=== PATIENT | male | born 1945 | race Caucasian/White ===

== ENCOUNTER → 2017-10-11 10:34 | Outpatient (CLI) | payer OTHER, SELFPAY ==
--- NOTE | 2017-10-11 | DI.CT.S_ITS ---
PROCEDURE: CT CHEST ABD PEL W CON INDICATIONS: 72-year-old male with metastatic colorectal carcinoma. TECHNIQUE: After the administration of oral and intravenous contrast, 5 mm thick sections acquired from the lung apices to the symphysis. 5 mm coronal and sagittal reformats were performed, with additional 7 mm coronal MIP reformats through the lungs. For radiation dose reduction, the following was used: automated exposure control, adjustment of mA and/or kV according to patient size. COMPARISON: [facility], CT, CHEST/ABD/PEL WITH CONTRAST, 08/22/2017, 13:07. [facility], CT, CHEST/ABD/PEL WITH CONTRAST, 05/04/2017, 13:23. [facility], [place], PET/CT SKULL BASE TO MID THIGH, 09/24/2016, 11:05. [facility], CT, CT CHEST ABD PELVIS W CON, 04/27/2016, 12:51. FINDINGS: Image quality: Excellent. CHEST: Lungs and pleura: No acute airspace opacities. Scattered bilateral pulmonary scarring is again noted, as well as several calcified pulmonary granulomas. Several bibasilar noncalcified nodules are unchanged since August 2017 but significantly smaller since April 2017, consistent with residual metastases. No pleural effusions or pneumothorax. Central and peripheral airways appear patent and normal in caliber. Mediastinum: Heart size is normal. No pericardial effusion. No mediastinal or hilar adenopathy by size criteria. Several calcified mediastinal lymph nodes are again noted. Thoracic aorta and central pulmonary arteries are normal in size. Esophagus is normal in caliber. No hiatal hernia. Chest wall: Left chest wall Port-A-Cath is again noted. No axillary or supraclavicular adenopathy by size criteria. Thyroid gland is normal in overall size but incompletely visualized. ABDOMEN: Solid organs: Liver is normal in size. Scattered punctate hepatic hypodense lesions are too small to further characterize but unchanged, likely reflecting tiny cysts. Gallbladder wall thickness is normal. Biliary system is non dilated. Pancreas enhances normally. Spleen is normal in size and enhancement. No adrenal nodules. Kidneys demonstrate normal size and enhancement, with interval resolved mild right hydroureteronephrosis. Right double-J ureteral stent remains in expected position. Peritoneum and bowel: Bowel loops demonstrate normal wall thickness and caliber. Patient is status post distal colon resection with left mid abdominal colostomy as before. No free fluid or air. Nodes and vessels: No retroperitoneal or mesenteric adenopathy by size criteria. Aorta and inferior vena cava are normal in size. Miscellaneous: No ventral hernias. PELVIS: Genitourinary: Bladder wall thickness is normal. Prostate gland is normal in overall size. Miscellaneous: No inguinal hernias or adenopathy. Amorphous soft tissue density along the right iliac vessels is unchanged since August 2017, but smaller since April 2017, consistent with previously reported metastatic adenopathy. Bones: No suspicious bony lesions. No vertebral body compression fractures. Nonacute healed left ischial ramus fracture is again noted. IMPRESSION: 1. Residual bibasilar pulmonary nodules and amorphous soft tissue densities along the right iliac vessels are unchanged since August 2017 but smaller since April 2017, consistent with metastatic tumor response to treatment. No new findings to suggest colon cancer metastases. 2. Pulmonary and mediastinal remote granulomatous disease. 3. Right ureteral stent remains in expected position, with interval decreased degree of right hydroureteronephrosis. Dictated by: Marlon Lazo M.D. on 10/11/2017 at 13:51 Approved by: Marlon Lazo M.D. on 10/11/2017 at 14:07
== END ==
PROVIDERS: PCP Internal Medicine; Visit Provider Internal Medicine Hematology & Oncology
DX: C18.9 Malignant neoplasm of colon, unspecified (principal); R91.8 Other nonspecific abnormal finding of lung field
CPT/HCPCS: 71260; 74177; Q9967

== ENCOUNTER → 2017-12-14 11:34 | Outpatient (CLI) | payer OTHER, SELFPAY ==
--- NOTE | 2017-12-14 | DI.CT.S_ITS ---
PROCEDURE: CT CHEST ABD PEL W CON INDICATIONS: METASTATIC RECTAL ADENOCARCINOMA TECHNIQUE: After the administration of oral and intravenous contrast, 5 mm thick sections acquired from the lung apices to the symphysis. 5 mm coronal and sagittal reformats were performed, with additional 7 mm coronal MIP reformats through the lungs. For radiation dose reduction, the following was used: automated exposure control, adjustment of mA and/or kV according to patient size. COMPARISON: [facility], CT, CT CHEST ABD PEL W CON, 10/11/2017, 11:43. [facility], CT, CHEST/ABD/PEL WITH CONTRAST, 08/22/2017, 13:07. [facility], CT, CHEST/ABD/PEL WITH CONTRAST, 05/04/2017, 13:23. FINDINGS: Image quality: Excellent. CHEST: Lungs and pleura: No acute airspace opacities. Areas of granulomatous disease and lung scarring within the lungs bilaterally have been stable over time. No pleural effusions or pneumothorax. Central and peripheral airways appear patent and normal in caliber. Mediastinum: Heart size is normal. No pericardial effusion. No mediastinal or hilar adenopathy by size criteria. Small scattered mediastinal calcified lymph nodes are again noted. This is best seen in the subcarinal space. Thoracic aorta and central pulmonary arteries are normal in size. Esophagus is normal in caliber. No hiatal hernia. Chest wall: No axillary or supraclavicular adenopathy by size criteria. Thyroid gland appears normal where well visualized. Port-A-Cath in normal position from left-sided approach. ABDOMEN: Solid organs: Liver is normal in size and enhancement. Gallbladder appears normal. Biliary system is non dilated. Pancreas enhances normally. Spleen is normal in size and enhancement. No adrenal nodules. Kidneys demonstrate asymmetric size, smaller on the right, and enhancement, without hydronephrosis. The right ureteral stent remains in normal position, tracking into the right bladder lumen Peritoneum and bowel: Bowel loops demonstrate normal wall thickness and caliber. No free fluid or air. Nodes and vessels: No retroperitoneal or mesenteric adenopathy by size criteria. Aorta and inferior vena cava are normal in size. Miscellaneous: No ventral hernias. PELVIS: Genitourinary: Bladder wall thickness is normal. Miscellaneous: No inguinal hernias or adenopathy. Ostomy left lower quadrant, no operative complication or peristomal hernia. Apparent rectal resection, no recurrent neoplasm in the operative bed. Bones: No suspicious bony lesions. No vertebral body compression fractures. IMPRESSION: 1. Stable appearing granulomatous disease and lung scarring, no evidence of pulmonary metastatic disease. 2. Within the abdomen no solid organ metastatic disease or adenopathy is found. 3. Asymmetric small right kidney, due to chronic hydronephrosis which has been relieved by a right-sided double pigtail ureteral stent in normal position above and below. 4. Stable appearing postsurgical changes in prior APR, without evidence of recurrent neoplasm or adjacent adenopathy in the presacral space. Left lower quadrant ostomy site appears normal. Dictated by: Librado Mary M.D. on 12/14/2017 at 16:25 Approved by: Librado Mary M.D. on 12/14/2017 at 16:46
== END ==
PROVIDERS: PCP Internal Medicine; Visit Provider Internal Medicine Hematology & Oncology
DX: C20 Malignant neoplasm of rectum (principal); N13.30 Unspecified hydronephrosis
CPT/HCPCS: 71260; 74177; Q9967

== ENCOUNTER 2018-10-03 09:14 | Emergency (ER) | payer OTHER, SELFPAY ==
[2018-10-03] VITALS (15 sets, daily range): BP systolic 73–101; BP diastolic 38–57; PULSE 66–118; RESP 11–18; TEMP 36.5; O2SAT 97–100
--- NOTE | 2018-10-03 09:41 | DI.RAD.S_ITS ---
PROCEDURE: XR CHEST 1V INDICATIONS: suspected sepsis TECHNIQUE: One view of the chest was acquired. COMPARISON: [facility], , CHEST 1 VIEW, 07/09/2017, 23:37. FINDINGS: Surgical changes and devices: Left chest wall Port-A-Cath tip is in SVC. Lungs and pleura: Lungs are clear. No pleural effusions or pneumothorax. Mediastinum: Mediastinal contours appear normal. Heart size is normal. Bones and chest wall: No suspicious bony lesions. Overlying soft tissues appear unremarkable. IMPRESSION: No acute cardiopulmonary pathology. Dictated by: Ander Bartlett M.D. on 10/03/2018 at 10:31 Approved by: Ander Bartlett M.D. on 10/03/2018 at 10:33
[2018-10-03] MEDS: SODIUM CHLORIDE 0.9% 1,000 ML 1000 ML IV (09:51)
[2018-10-03 09:55] LABS: INR 1.1 (0.9-1.3); Prothrombin Time 12.9 SECONDS (10.1-12.7)
[2018-10-03 09:57] LABS: PTT Partial Thromboplastin Tim 30 SECONDS (26.4-36.2)
[2018-10-03 09:59] LABS: Add Manual Diff / Slide Review NO; Basophils Absolute Auto 0 /uL (0-100); Basophils Percent Auto 0.5 % (0-2); Eosinophils Absolute Auto 200 /uL (0-450); Eosinophils Percent Auto 3.5 % (2-4); Hematocrit 38.9 % (41-53); Lymphocytes Absolute Auto 700 /uL (1100-4500); Lymphocytes Percent Auto 14.1 % (25-40); Mean Corpuscular HGB Conc 33.5 % (30-36); Mean Corpuscular Hemoglobin 33.9 PG (26-34); Mean Corpuscular Volume 101.2 fL (80-100); Monocytes Absolute Auto 400 /uL (0-900); Neutrophils Absolute Auto 3900 /uL (1500-7000); Neutrophils Percent Auto 74.9 % (50-75); Platelet Count 312 X10^3/uL (150-400); Red Blood Cell Count 3.85 X10^6/uL (4.5-5.9); Red Cell Distribution Width 14.1 % (11.6-14.8); White Blood Cell Count 5.2 X10^3/uL (4.5-11.0)
[2018-10-03 10:10] LABS: Creatine Kinase 74 U/L (55-170)
[2018-10-03] MEDS: HYDROCORTISONE 1% OINT 28 GM 1 APPLIC TOP (10:16)
--- NOTE | 2018-10-03 10:17 | PC.NURSE ---
reaction to chloroprep used by lab to draw blood cultures noted, red skin w/ small bumps, localized only to right ac. hydrocortisone cream applied w/ verbalized relief.
[2018-10-03 10:20] LABS: Alanine Aminotransferase 40 IU/L (21-72); Albumin 3.7 g/dL (3.5-5.0); Albumin Globulin Ratio 1.5 (1.0-2.8); Alkaline Phosphatase 72 U/L (38-126); Aspartate Aminotransferase 29 IU/L (17-59); Bilirubin Total 0.4 mg/dL (0.2-1.3); Blood Urea Nitrogen 18 mg/dL (9-20); Calcium 8.7 mg/dL (8.4-10.2); Carbon Dioxide 23 mmol/L (22-32); Chloride 104 mmol/L (98-107); Estimated Glomerular Filt Rate > 60.0 mL/min (>60); Globulin 2.5 g/dL (1.7-4.1); Glucose 117 mg/dL (80-110); HEMOLYSIS 15 (0-50); Sodium 138 mmol/L (137-145); Total Protein 6.2 g/dL (6.3-8.2)
[2018-10-03 10:23] LABS: Troponin I < 0.012 ng/mL (0.01-0.034)
[2018-10-03 10:27] LABS: Procalcitonin < 0.05 ng/mL (<0.5)
[2018-10-03 10:31] LABS: Lipase 40 U/L (23-300)
[2018-10-03 10:32] LABS: Lactate (Lactic Acid) 1.4 mmol/L (0.7-2.1)
[2018-10-03] MEDS: SODIUM CHLORIDE 0.9% 1,000 ML 500 ML IV (11:16)
--- NOTE | 2018-10-03 12:44 | ED.DIZZY ---
HPI - Dizziness General Chief Complaint: Dizziness Stated Complaint: Low blood pressure, dizzy, light headed Time Seen by Provider: 10/03/18 09:27 Source: patient and family Mode of arrival: ambulatory Limitations: no limitations History of Present Illness HPI Narrative: Patient comes to the emergency department complaining of dizziness and low blood pressure for the last couple of days. Patient has metastatic colorectal cancer and is on chemotherapy for this. The last chemo he had was last week. Patient states that after his chemotherapy, he is usually constipated for a few days and then developed diarrhea. 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 He states that last night he had an episode of copious diarrhea, and had to empty his colostomy bag several times. He has wonders if this has contributed to to his feeling of dizziness. Patient states that he has not had a recent change in his chemotherapy, and has been on this same agent for the last couple of months. He states he gets his chemo treatments every 2 weeks. He usually gets a L of IV fluid with the treatment, but that otherwise, he takes p.o. liquids. He states he has not been nauseated or vomiting. The patient states that he has been feeling more fatigued than usual for the last month, and that none of his physicians seem to know exactly why. He states that his thyroid was just recently checked, and the values were found to be normal. patient denies chest pain, shortness of breath, fever, cough, dysuria, or any other new complaints. patient does note that he is still on metoprolol and lisinopril. He states that his blood pressure has been lower since being back on the chemotherapy. Related Data Home Medications Medication Instructions Recorded Confirmed amiodarone 200 mg PO DAILY 10/03/18 10/03/18 apixaban [Eliquis] 5 mg PO BID 10/03/18 10/03/18 ascorbic acid (vitamin C) [Vitamin 1 g PO DAILY 10/03/18 10/03/18 C] aspirin 81 mg PO DAILY 10/03/18 10/03/18 atorvastatin 40 mg PO DAILY 10/03/18 10/03/18 cholecalciferol (vitamin D3) 5,000 unit PO DAILY 10/03/18 10/03/18 [Vitamin D3] digestive enzymes [Enzymatic 1 tab PO TID PRN 10/03/18 10/03/18 Digestant] docosahexanoic acid-epa 1 cap PO DAILY 10/03/18 10/03/18 gabapentin 300 mg PO BID 10/03/18 10/03/18 glutamine 1 packet PO BID 10/03/18 10/03/18 hydrocortisone 1 applic TOPICAL BID PRN 10/03/18 10/03/18 lisinopril 1.25 mg PO DAILY 10/03/18 10/03/18 magnesium 200 mg PO DAILY 10/03/18 10/03/18 metoprolol succinate 25 mg PO Q12H 10/03/18 10/03/18 multivitamin 1 cap PO DAILY 10/03/18 10/03/18 oxycodone 5 mg PO Q12H 10/03/18 10/03/18 potassium chloride 10 meq PO DAILY 10/03/18 10/03/18 trazodone 50 mg PO BEDTIME PRN 10/03/18 10/03/18 vit [id number] fact-FA cmb #2 1 tab PO DAILY 10/03/18 10/03/18 [Intrinsi [id number]] Allergies Allergy/AdvReac Type Severity Reaction Status Date / Time CHLOROPREP Allergy Unknown SKIN Uncoded 09/14/17 12:17 REACTION Review of Systems Constitutional Denies chills, Reports fatigue, Denies fever(s), Denies lethargy and Denies weakness Eyes Denies change in vision, Denies eye discharge, Denies irritation and Denies loss of vision ENT Ears, Nose, Mouth, and Throat: Denies change in voice, Denies neck pain and Denies sore throat Cardiovascular Denies chest pain, Denies irregular heart rhythm, Denies lightheadedness, Denies palpitations, Denies dyspnea, Denies dyspnea on exertion and Denies orthopnea Respiratory Denies cough, Denies dyspnea, Denies dyspnea on exertion and Denies wheezing Gastrointestinal Gastrointestinal: Denies abdominal pain, Denies change in bowel habits, Denies diarrhea, Denies nausea and Denies vomiting Genitourinary Denies hematuria, Denies flank pain, Denies urinary incontinence and Denies urinary urgency Musculoskeletal Denies neck pain Integumentary/Breasts Denies pruritus, Denies erythema, Denies rash and Denies wounds Neurologic Denies confusion, Denies loss of vision and Denies weakness Psychiatric Denies anxiety, Denies confusion, Denies depression, Denies homicidal ideation and Denies suicidal ideation Endocrine Reports fatigue and Denies palpitations Hematologic/Lymphatic Denies easy bruising Allergic/Immunologic Denies wheezing [facility] Medical History (Updated 10/05/18 @ 12:27 by Yenny Marquis MD) Metastatic colorectal cancer (Acute) No blood products (Acute) Social History Smoking Status: Former smoker Social History Smoking Status: Former smoker Exam Initial Vital Signs Initial Vital Signs: Vital Signs Temperature 97.7 F 10/03/18 09:18 Pulse Rate 103 H 10/03/18 09:18 Respiratory Rate 14 10/03/18 09:18 Blood Pressure 80/57 L 10/03/18 09:18 Pulse Oximetry 97 10/03/18 09:18 Const General: cooperative and well developed Nutritional Appearance: well nourished Orientation: alert, awake, oriented x3 and not confused HENMT Head: normocephalic and atraumatic Ears: external ears normal and TM's normal bilaterally Nose: external nose normal and No nasal discharge Face and sinus: sinuses nontender, face symmetric, no sinus tenderness and No dry mucous membranes Mouth: oral mucosae normal and moist mucous membranes Teeth and gingiva: dentition normal Throat: tonsils normal and uvula midline Eyes General: appearance normal, both eyes and all related structures Eyelids: eyelids normal Conjunctivae: conjunctivae normal Sclera: sclerae normal Pupils: PERRL EOM: EOM intact bilaterally Neck Neck: normal visual inspection, trachea midline, No lymphadenopathy, No midline deformity and No JVD Lymphatic: No lymphedema Chest Chest: normal inspection of the chest Resp Effort & Inspection: normal respiratory effort, able to speak in complete sentences, no respiratory distress and no use of accessory muscles Auscultation: clear to auscultation bilaterally, no rales, no rhonchi and no wheezes Cardio Rate: regular rate Rhythm: regular rhythm Heart Sounds: no click, no gallops, no murmurs and no rubs Pulses: normal peripheral pulses GI Inspection: non-distended Palpation: soft, no hepatosplenomegaly, No guarding, No pulsatile mass and No tender Auscultation: normal bowel sounds Back/Spine/Pelvis Back: No CVA tenderness Cervical Spine: cervical ROM normal and No pain with cervical ROM Thoracic/Lumbar Spine: thoracic and lumbar spine normal to inspection Skin General: no rashes or lesions noted, No jaundice and No petechiae Neuro General: alert, oriented x3, gait normal and no focal motor deficits Speech: speech normal Extrem General: full ROM, no clubbing, cyanosis or edema, no pedal edema and no calf tenderness Psych Appearance: well kempt Mental Status: mental status grossly normal Attitude: cooperative Thought Content: normal and suicidality Judgment: judgment good Course Course Narrative: Patient was given IV fluids and worked up with laboratory studies. I felt that he was most likely somewhat dehydrated after the chemotherapy and diarrhea. I also reviewed the patient's past medical history, and found that the hypotension had been going on for quite some time, and had been acknowledged by the patient's oncologist. I was also concerned patient was still on metoprolol and lisinopril, despite his hypotension. I spoke with Dr. Valentin, who stated that he should discontinue the patient's lisinopril. I did communicate this to the patient and family, who expressed understanding. Patient was feeling much better on re-evaluation, and I felt he was stable for discharge home. We have discussed the need to drink copious amounts of fluids, especially in the 1st week after chemo. We have discussed the need for follow-up, as well as the usual indications for return. Orders Ordered: Discontinued Medications Hydrocortisone (Hydrocortisone 1% Oint) 1 applic TOP NOW ONE Stop: 10/03/18 10:16 Last Admin: 10/03/18 10:16 Dose: 1 applic Sodium Chloride (Normal Saline 0.9%) 1,000 mls @ 1,000 mls/hr IV BOLUS ONE Stop: 10/03/18 10:40 Last Infusion: 10/03/18 11:16 Dose: 0 mls/hr Admin: 10/03/18 09:51 Dose: 1,000 mls/hr Sodium Chloride (Normal Saline 0.9%) 1,000 mls @ 500 mls/hr IV BOLUS ONE Stop: 10/03/18 13:09 Last Infusion: 10/03/18 14:15 Dose: 0 mls/hr Infusion: 10/03/18 14:11 Dose: 0 mls/hr Infusion: 10/03/18 12:18 Dose: 250 mls/hr Admin: 10/03/18 11:16 Dose: 500 mls/hr Vital Signs - 8 hr 10/03/18 09:18 10/03/18 09:28 10/03/18 09:34 Temperature 97.7 F Pulse Rate 103 H 118 H 93 H Pulse Rate [Orthostatic Lying] Pulse Rate [Orthostatic Sitting] Pulse Rate [Orthostatic Standing] Respiratory Rate 14 18 17 Blood Pressure 80/57 L Blood Pressure [Left Arm] 78/38 L 100/56 L Blood Pressure [Orthostatic Lying] Blood Pressure [Orthostatic Sitting] Blood Pressure [Orthostatic Standing] Pulse Oximetry 97 98 10/03/18 09:48 10/03/18 09:50 10/03/18 10:05 Temperature Pulse Rate 100 H 98 H Pulse Rate [Orthostatic Lying] 88 Pulse Rate [Orthostatic Sitting] 97 H Pulse Rate [Orthostatic Standing] 108 H Respiratory Rate 17 18 Blood Pressure Blood Pressure [Left Arm] 91/48 L 81/40 L Blood Pressure [Orthostatic Lying] 100/56 L Blood Pressure [Orthostatic Sitting] 98/56 L Blood Pressure [Orthostatic Standing] 73/50 L Pulse Oximetry 98 98 10/03/18 10:26 10/03/18 11:00 10/03/18 11:20 Temperature Pulse Rate 76 66 70 Pulse Rate [Orthostatic Lying] Pulse Rate [Orthostatic Sitting] Pulse Rate [Orthostatic Standing] Respiratory Rate 12 11 L 14 Blood Pressure Blood Pressure [Left Arm] 90/47 L 101/41 L 91/49 L Blood Pressure [Orthostatic Lying] Blood Pressure [Orthostatic Sitting] Blood Pressure [Orthostatic Standing] Pulse Oximetry 98 100 99 10/03/18 11:39 Temperature Pulse Rate 69 Pulse Rate [Orthostatic Lying] Pulse Rate [Orthostatic Sitting] Pulse Rate [Orthostatic Standing] Respiratory Rate 14 Blood Pressure Blood Pressure [Left Arm] 95/42 L Blood Pressure [Orthostatic Lying] Blood Pressure [Orthostatic Sitting] Blood Pressure [Orthostatic Standing] Pulse Oximetry 100 MDM - Dizziness Medical Records Attestation: I reviewed the patient's medical records. Lab Data Attestation: I reviewed the patient's lab results. Result diagrams: 10/03/18 09:35 10/03/18 09:41 Lab Results 10/03/18 10/03/18 10/03/18 Range/Units 09:35 09:35 09:35 WBC 5.2 (4.5-11.0) X10^3/uL RBC 3.85 L (4.5-5.9) X10^6/uL Hgb 13.0 L (13.5-17.5) g/dL Hct 38.9 L (41-53) % MCV 101.2 H (80-100) fL MCH 33.9 (26-34) PG MCHC 33.5 (30-36) % RDW 14.1 (11.6-14.8) % Plt Count 312 (150-400) X10^3/uL Neut % (Auto) 74.9 (50-75) % Lymph % (Auto) 14.1 L (25-40) % [place] % (Auto) 7.0 (3-14) % Eos % (Auto) 3.5 (2-4) % Baso % (Auto) 0.5 (0-2) % Neut # (Auto) 3900 (8864-7585) /uL Lymph # (Auto) 700 L (9085-3676) /uL [place] # (Auto) 400 (0-900) /uL Eos # (Auto) 200 (0-450) /uL Baso # (Auto) 0 (0-100) /uL PT 12.9 H (10.1-12.7) SECONDS INR 1.1 (0.9-1.3) APTT 30 (26.4-36.2) SECONDS Sodium (137-145) mmol/L Potassium (3.4-5.1) mmol/L Chloride (98-107) mmol/L Carbon Dioxide (22-32) mmol/L BUN (9-20) mg/dL Creatinine (0.66-1.25) mg/dL Estimated GFR (>60) mL/min BUN/Creatinine Ratio (6-22) Glucose (80-110) mg/dL Lactate (0.7-2.1) mmol/L Calcium (8.4-10.2) mg/dL Total Bilirubin (0.2-1.3) mg/dL AST (17-59) IU/L ALT (21-72) IU/L Alkaline Phosphatase (38-126) U/L Total Creatine Kinase (55-170) U/L CK-MB (CK-2) CK-MB (CK-2) Rel Index Troponin I (0.01-0.034) ng/mL Total Protein (6.3-8.2) g/dL Albumin (3.5-5.0) g/dL Globulin (1.7-4.1) g/dL Albumin/Globulin Ratio (1.0-2.8) Lipase (23-300) U/L Procalcitonin < 0.05 (<0.5) ng/mL 10/03/18 10/03/18 10/03/18 Range/Units 09:35 09:41 09:41 WBC (4.5-11.0) X10^3/uL RBC (4.5-5.9) X10^6/uL Hgb (13.5-17.5) g/dL Hct (41-53) % MCV (80-100) fL MCH (26-34) PG MCHC (30-36) % RDW (11.6-14.8) % Plt Count (150-400) X10^3/uL Neut % (Auto) (50-75) % Lymph % (Auto) (25-40) % [place] % (Auto) (3-14) % Eos % (Auto) (2-4) % Baso % (Auto) (0-2) % Neut # (Auto) (1260-6868) /uL Lymph # (Auto) (4392-1385) /uL [place] # (Auto) (0-900) /uL Eos # (Auto) (0-450) /uL Baso # (Auto) (0-100) /uL PT (10.1-12.7) SECONDS INR (0.9-1.3) APTT (26.4-36.2) SECONDS Sodium 138 (137-145) mmol/L Potassium 4.0 (3.4-5.1) mmol/L Chloride 104 (98-107) mmol/L Carbon Dioxide 23 (22-32) mmol/L BUN 18 (9-20) mg/dL Creatinine 0.90 (0.66-1.25) mg/dL Estimated GFR > 60.0 (>60) mL/min BUN/Creatinine Ratio 20.0 (6-22) Glucose 117 H (80-110) mg/dL Lactate 1.4 (0.7-2.1) mmol/L Calcium 8.7 (8.4-10.2) mg/dL Total Bilirubin 0.4 (0.2-1.3) mg/dL AST 29 (17-59) IU/L ALT 40 (21-72) IU/L Alkaline Phosphatase 72 (38-126) U/L Total Creatine Kinase 74 (55-170) U/L CK-MB (CK-2) TNP CK-MB (CK-2) Rel Index TNP Troponin I < 0.012 (0.01-0.034) ng/mL Total Protein 6.2 L (6.3-8.2) g/dL Albumin 3.7 (3.5-5.0) g/dL Globulin 2.5 (1.7-4.1) g/dL Albumin/Globulin Ratio 1.5 (1.0-2.8) Lipase 40 (23-300) U/L Procalcitonin (<0.5) ng/mL Imaging Data Chest x-ray: Radiologist's impression: [address] [address] XRay Report Signed Patient: Ryan Noe FMR#: [id number] : [id number]:[id number] Age/Sex: 73 / MDate of Service: 10/03/18 Loc: ED Accession Number: [id number] Procedure: XR chest 1V Ordering Provider: Yenny Marquis MD PROCEDURE: XR CHEST 1V INDICATIONS: suspected sepsis TECHNIQUE: One view of the chest was acquired. COMPARISON: [facility], CHEST 1 VIEW, 07/09/2017, 23:37. FINDINGS: Surgical changes and devices: Left chest wall Port-A-Cath tip is in SVC. Lungs and pleura: Lungs are clear. No pleural effusions or pneumothorax. Mediastinum: Mediastinal contours appear normal. Heart size is normal. Bones and chest wall: No suspicious bony lesions. Overlying soft tissues appear unremarkable. IMPRESSION: No acute cardiopulmonary pathology. Dictated by: Ander Bartlett M.D. on 10/03/2018 at 10:31 Approved by: Ander Bartlett M.D. on 10/03/2018 at 10:33 ECG Data Attestation: I personally reviewed and interpreted this ECG as follows: (See below) Interpretation: Twelve lead EKG performed October 03, 2018, at 9:29 a.m.: Regular ventricular rhythm with a rate of 90 beats per minute HI interval 170 milliseconds QRS duration 86 millisecond QTC interval [address] T wave changes No ectopy Interpretation: Normal sinus rhythm, no signs of acute ischemia; normal EKG as interpreted by ED MD. Discharge Plan Departure Patient Disposition: Home Clinical Impression: Dehydration Discharge Date/Time: 10/03/18 15:07 Interventions: ED Discharge Assessment Last Done: 10/03/18 15:06 Instructions: Orthostatic Hypotension, DI for Dehydration -- Adult Activity Restrictions/Additional Instructions: Your labs look good, overall. Your case has been discussed with Dr. Valentin, who would like you to stop your lisinopril, due to your low blood pressure. You may call his office for a follow up appointment. Prescriptions: No Action digestive enzymes [Enzymatic Digestant] Tablet 1 tab PO TID PRN (Reason: digestion) RF: 0 atorvastatin 40 mg Tablet 40 mg PO DAILY RF: 0 ascorbic acid (vitamin C) [Vitamin C] 1,000 mg Tablet 1 g PO DAILY RF: 0 trazodone 50 mg Tablet 50 mg PO BEDTIME PRN (Reason: Sleep) RF: 0 amiodarone 200 mg Tablet 200 mg PO DAILY RF: 0 aspirin 81 mg Tablet,Delayed Release (Dr/Ec) 81 mg PO DAILY RF: 0 gabapentin 300 mg Capsule 300 mg PO BID RF: 0 hydrocortisone 2.5 % Cream 1 applic TOPICAL BID PRN (Reason: skin irritation or rash) RF: 0 metoprolol succinate 25 mg Tablet Extended Release 24 Hr 25 mg PO Q12H RF: 0 multivitamin Capsule 1 cap PO DAILY RF: 0 lisinopril 2.5 mg Tablet 1.25 mg PO DAILY RF: 0 oxycodone 5 mg Tablet 5 mg PO Q12H RF: 0 magnesium 200 mg Tablet 200 mg PO DAILY RF: 0 docosahexanoic acid-epa 120-180 mg Capsule 1 cap PO DAILY RF: 0 cholecalciferol (vitamin D3) [Vitamin D3] 5,000 unit Tablet 5,000 unit PO DAILY RF: 0 Intrinsi [id number] 500-20-800 mcg-mg-mcg Tablet 1 tab PO DAILY RF: 0 Eliquis 5 mg Tablet 5 mg PO BID RF: 0 potassium chloride 20 mEq Tablet Extended Release 10 meq PO DAILY RF: 0 glutamine powder 1 packet PO BID RF: 0 Referrals: Eliseo Pritchard [Primary Care Provider] -
--- NOTE | 2018-10-03 12:49 | ED_ITS ---
HPI - Dizziness General Chief Complaint: Dizziness Stated Complaint: Low blood pressure, dizzy, light headed Time Seen by Provider: 10/03/18 09:27 Source: patient and family Mode of arrival: ambulatory Limitations: no limitations History of Present Illness HPI Narrative: Patient comes to the emergency department complaining of dizziness and low blood pressure for the last couple of days. Patient has metastatic colorectal cancer and is on chemotherapy for this. The last chemo he had was last week. Patient states that after his chemotherapy, he is usually constipated for a few days and then developed diarrhea. 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 He states that last night he had an episode of copious diarrhea, and had to empty his colostomy bag several times. He has wonders if this has contributed to to his feeling of dizziness. Patient states that he has not had a recent change in his chemotherapy, and has been on this same agent for the last couple of months. He states he gets his chemo treatments every 2 weeks. He usually gets a L of IV fluid with the treatment, but that otherwise, he takes p.o. liquids. He states he has not been nauseated or vomiting. The patient states that he has been feeling more fatigued than usual for the last month, and that none of his physicians seem to know exactly why. He states that his thyroid was just recently checked, and the values were found to be normal. patient denies chest pain, shortness of breath, fever, cough, dysuria, or any other new complaints. patient does note that he is still on metoprolol and lisinopril. He states that his blood pressure has been lower since being back on the chemotherapy. Related Data Home Medications Medication Instructions Recorded Confirmed amiodarone 200 mg PO DAILY 10/03/18 10/03/18 apixaban [Eliquis] 5 mg PO BID 10/03/18 10/03/18 ascorbic acid (vitamin C) [Vitamin 1 g PO DAILY 10/03/18 10/03/18 C] aspirin 81 mg PO DAILY 10/03/18 10/03/18 atorvastatin 40 mg PO DAILY 10/03/18 10/03/18 cholecalciferol (vitamin D3) 5,000 unit PO DAILY 10/03/18 10/03/18 [Vitamin D3] digestive enzymes [Enzymatic 1 tab PO TID PRN 10/03/18 10/03/18 Digestant] docosahexanoic acid-epa 1 cap PO DAILY 10/03/18 10/03/18 gabapentin 300 mg PO BID 10/03/18 10/03/18 glutamine 1 packet PO BID 10/03/18 10/03/18 hydrocortisone 1 applic TOPICAL BID PRN 10/03/18 10/03/18 lisinopril 1.25 mg PO DAILY 10/03/18 10/03/18 magnesium 200 mg PO DAILY 10/03/18 10/03/18 metoprolol succinate 25 mg PO Q12H 10/03/18 10/03/18 multivitamin 1 cap PO DAILY 10/03/18 10/03/18 oxycodone 5 mg PO Q12H 10/03/18 10/03/18 potassium chloride 10 meq PO DAILY 10/03/18 10/03/18 trazodone 50 mg PO BEDTIME PRN 10/03/18 10/03/18 vit [id number] fact-FA cmb #2 1 tab PO DAILY 10/03/18 10/03/18 [Intrinsi [id number]] Allergies Allergy/AdvReac Type Severity Reaction Status Date / Time CHLOROPREP Allergy Unknown SKIN Uncoded 09/14/17 12:17 REACTION Review of Systems Constitutional Denies chills, Reports fatigue, Denies fever(s), Denies lethargy and Denies weakness Eyes Denies change in vision, Denies eye discharge, Denies irritation and Denies loss of vision ENT Ears, Nose, Mouth, and Throat: Denies change in voice, Denies neck pain and Denies sore throat Cardiovascular Denies chest pain, Denies irregular heart rhythm, Denies lightheadedness, Denies palpitations, Denies dyspnea, Denies dyspnea on exertion and Denies orthopnea Respiratory Denies cough, Denies dyspnea, Denies dyspnea on exertion and Denies wheezing Gastrointestinal Gastrointestinal: Denies abdominal pain, Denies change in bowel habits, Denies diarrhea, Denies nausea and Denies vomiting Genitourinary Denies hematuria, Denies flank pain, Denies urinary incontinence and Denies urinary urgency Musculoskeletal Denies neck pain Integumentary/Breasts Denies pruritus, Denies erythema, Denies rash and Denies wounds Neurologic Denies confusion, Denies loss of vision and Denies weakness Psychiatric Denies anxiety, Denies confusion, Denies depression, Denies homicidal ideation and Denies suicidal ideation Endocrine Reports fatigue and Denies palpitations Hematologic/Lymphatic Denies easy bruising Allergic/Immunologic Denies wheezing [facility] Medical History (Updated 10/05/18 @ 12:27 by Yenny Marquis MD) Metastatic colorectal cancer (Acute) No blood products (Acute) Social History Smoking Status: Former smoker Social History Smoking Status: Former smoker Exam Initial Vital Signs Initial Vital Signs: Vital Signs Temperature 97.7 F 10/03/18 09:18 Pulse Rate 103 H 10/03/18 09:18 Respiratory Rate 14 10/03/18 09:18 Blood Pressure 80/57 L 10/03/18 09:18 Pulse Oximetry 97 10/03/18 09:18 Const General: cooperative and well developed Nutritional Appearance: well nourished Orientation: alert, awake, oriented x3 and not confused HENMT Head: normocephalic and atraumatic Ears: external ears normal and TM's normal bilaterally Nose: external nose normal and No nasal discharge Face and sinus: sinuses nontender, face symmetric, no sinus tenderness and No dry mucous membranes Mouth: oral mucosae normal and moist mucous membranes Teeth and gingiva: dentition normal Throat: tonsils normal and uvula midline Eyes General: appearance normal, both eyes and all related structures Eyelids: eyelids normal Conjunctivae: conjunctivae normal Sclera: sclerae normal Pupils: PERRL EOM: EOM intact bilaterally Neck Neck: normal visual inspection, trachea midline, No lymphadenopathy, No midline deformity and No JVD Lymphatic: No lymphedema Chest Chest: normal inspection of the chest Resp Effort & Inspection: normal respiratory effort, able to speak in complete sente nces, no respiratory distress and no use of accessory muscles Auscultation: clear to auscultation bilaterally, no rales, no rhonchi and no wheezes Cardio Rate: regular rate Rhythm: regular rhythm Heart Sounds: no click, no gallops, no murmurs and no rubs Pulses: normal peripheral pulses GI Inspection: non-distended Palpation: soft, no hepatosplenomegaly, No guarding, No pulsatile mass and No tender Auscultation: normal bowel sounds Back/Spine/Pelvis Back: No CVA tenderness Cervical Spine: cervical ROM normal and No pain with cervical ROM Thoracic/Lumbar Spine: thoracic and lumbar spine normal to inspection Skin General: no rashes or lesions noted, No jaundice and No petechiae Neuro General: alert, oriented x3, gait normal and no focal motor deficits Speech: speech normal Extrem General: full ROM, no clubbing, cyanosis or edema, no pedal edema and no calf tenderness Psych Appearance: well kempt Mental Status: mental status grossly normal Attitude: cooperative Thought Content: normal and suicidality Judgment: judgment good Course Course Narrative: Patient was given IV fluids and worked up with laboratory studies. I felt that he was most likely somewhat dehydrated after the chemotherapy and diarrhea. I also reviewed the patient's past medical history, and found that the hypotension had been going on for quite some time, and had been acknowledged by the patient's oncologist. I was also concerned patient was still on metoprolol and lisinopril, despite his hypotension. I spoke with Dr. Valentin, who stated that he should discontinue the patient's lisinopril. I did communicate this to the patient and family, who expressed understanding. Patient was feeling much better on re-evaluation, and I felt he was stable for discharge home. We have discussed the need to drink copious amounts of fluids, especially in the 1st week after chemo. We have discussed the need for follow- up, as well as the usual indications for return. Orders Ordered: Discontinued Medications Hydrocortisone (Hydrocortisone 1% Oint) 1 applic TOP NOW ONE Stop: 10/03/18 10:16 Last Admin: 10/03/18 10:16 Dose: 1 applic Sodium Chloride (Normal Saline 0.9%) 1,000 mls @ 1,000 mls/hr IV BOLUS ONE Stop: 10/03/18 10:40 Last Infusion: 10/03/18 11:16 Dose: 0 mls/hr Admin: 10/03/18 09:51 Dose: 1,000 mls/hr Sodium Chloride (Normal Saline 0.9%) 1,000 mls @ 500 mls/hr IV BOLUS ONE Stop: 10/03/18 13:09 Last Infusion: 10/03/18 14:15 Dose: 0 mls/hr Infusion: 10/03/18 14:11 Dose: 0 mls/hr Infusion: 10/03/18 12:18 Dose: 250 mls/hr Admin: 10/03/18 11:16 Dose: 500 mls/hr Vital Signs - 8 hr 10/03/18 09:18 10/03/18 09:28 10/03/18 09:34 Temperature 97.7 F Pulse Rate 103 H 118 H 93 H Pulse Rate [Orthostatic Lying] Pulse Rate [Orthostatic Sitting] Pulse Rate [Orthostatic Standing] Respiratory Rate 14 18 17 Blood Pressure 80/57 L Blood Pressure [Left Arm] 78/38 L 100/56 L Blood Pressure [Orthostatic Lying] Blood Pressure [Orthostatic Sitting] Blood Pressure [Orthostatic Standing] Pulse Oximetry 97 98 10/03/18 09:48 10/03/18 09:50 10/03/18 10:05 Temperature Pulse Rate 100 H 98 H Pulse Rate [Orthostatic Lying] 88 Pulse Rate [Orthostatic Sitting] 97 H Pulse Rate [Orthostatic Standing] 108 H Respiratory Rate 17 18 Blood Pressure Blood Pressure [Left Arm] 91/48 L 81/40 L Blood Pressure [Orthostatic Lying] 100/56 L Blood Pressure [Orthostatic Sitting] 98/56 L Blood Pressure [Orthostatic Standing] 73/50 L Pulse Oximetry 98 98 10/03/18 10:26 10/03/18 11:00 10/03/18 11:20 Temperature Pulse Rate 76 66 70 Pulse Rate [Orthostatic Lying] Pulse Rate [Orthostatic Sitting] Pulse Rate [Orthostatic Standing] Respiratory Rate 12 11 L 14 Blood Pressure Blood Pressure [Left Arm] 90/47 L 101/41 L 91/49 L Blood Pressure [Orthostatic Lying] Blood Pressure [Orthostatic Sitting] Blood Pressure [Orthostatic Standing] Pulse Oximetry 98 100 99 10/03/18 11:39 Temperature Pulse Rate 69 Pulse Rate [Orthostatic Lying] Pulse Rate [Orthostatic Sitting] Pulse Rate [Orthostatic Standing] Respiratory Rate 14 Blood Pressure Blood Pressure [Left Arm] 95/42 L Blood Pressure [Orthostatic Lying] Blood Pressure [Orthostatic Sitting] Blood Pressure [Orthostatic Standing] Pulse Oximetry 100 MDM - Dizziness Medical Records Attestation: I reviewed the patient's medical records. Lab Data Attestation: I reviewed the patient's lab results. Result diagrams: 10/03/18 09:35 10/03/18 09:41 Lab Results 10/03/18 10/03/18 10/03/18 Range/Units 09:35 09:35 09:35 WBC 5.2 (4.5-11.0) X10^3/uL RBC 3.85 L (4.5-5.9) X10^6/uL Hgb 13.0 L (13.5-17.5) g/dL Hct 38.9 L (41-53) % MCV 101.2 H (80-100) fL MCH 33.9 (26-34) PG MCHC 33.5 (30-36) % RDW 14.1 (11.6-14.8) % Plt Count 312 (150-400) X10^3/uL Neut % (Auto) 74.9 (50-75) % Lymph % (Auto) 14.1 L (25-40) % [place] % (Auto) 7.0 (3-14) % Eos % (Auto) 3.5 (2-4) % Baso % (Auto) 0.5 (0-2) % Neut # (Auto) 3900 (5215-0029) /uL Lymph # (Auto) 700 L (7645-7887) /uL [place] # (Auto) 400 (0-900) /uL Eos # (Auto) 200 (0-450) /uL Baso # (Auto) 0 (0-100) /uL PT 12.9 H (10.1-12.7) SECONDS INR 1.1 (0.9-1.3) APTT 30 (26.4-36.2) SECONDS Sodium (137-145) mmol/L Potassium (3.4-5.1) mmol/L Chloride (98-107) mmol/L Carbon Dioxide (22-32) mmol/L BUN (9-20) mg/dL Creatinine (0.66-1.25) mg/dL Estimated GFR (>60) mL/min BUN/Creatinine Ratio (6-22) Glucose (80-110) mg/dL Lactate (0.7-2.1) mmol/L Calcium (8.4-10.2) mg/dL Total Bilirubin (0.2-1.3) mg/dL AST (17-59) IU/L ALT (21-72) IU/L Alkaline Phosphatase (38-126) U/L Total Creatine Kinase (55-170) U/L CK-MB (CK-2) CK-MB (CK-2) Rel Index Troponin I (0.01-0.034) ng/mL Total Protein (6.3-8.2) g/dL Albumin (3.5-5.0) g/dL Globulin (1.7-4.1) g/dL Albumin/Globulin Ratio (1.0-2.8) Lipase (23-300) U/L Procalcitonin < 0.05 (<0.5) ng/mL 10/03/18 10/03/18 10/03/18 Range/Units 09:35 09:41 09:41 WBC (4.5-11.0) X10^3/uL RBC (4.5-5.9) X10^6/uL Hgb (13.5-17.5) g/dL Hct (41-53) % MCV (80-100) fL MCH (26-34) PG MCHC (30-36) % RDW (11.6-14.8) % Plt Count (150-400) X10^3/uL Neut % (Auto) (50-75) % Lymph % (Auto) (25-40) % [place] % (Auto) (3-14) % Eos % (Auto) (2-4) % Baso % (Auto) (0-2) % Neut # (Auto) (8641-7436) /uL Lymph # (Auto) (8368-0602) /uL [place] # (Auto) (0-900) /uL Eos # (Auto) (0-450) /uL Baso # (Auto) (0-100) /uL PT (10.1-12.7) SECONDS INR (0.9-1.3) APTT (26.4-36.2) SECONDS Sodium 138 (137-145) mmol/L Potassium 4.0 (3.4-5.1) mmol/L Chloride 104 (98-107) mmol/L Carbon Dioxide 23 (22-32) mmol/L BUN 18 (9-20) mg/dL Creatinine 0.90 (0.66-1.25) mg/dL Estimated GFR > 60.0 (>60) mL/min BUN/Creatinine Ratio 20.0 (6-22) Glucose 117 H (80-110) mg/dL Lactate 1.4 (0.7-2.1) mmol/L Calcium 8.7 (8.4-10.2) mg/dL Total Bilirubin 0.4 (0.2-1.3) mg/dL AST 29 (17-59) IU/L ALT 40 (21-72) IU/L Alkaline Phosphatase 72 (38-126) U/L Total Creatine Kinase 74 (55-170) U/L CK-MB (CK-2) TNP CK-MB (CK-2) Rel Index TNP Troponin I < 0.012 (0.01-0.034) ng/mL Total Protein 6.2 L (6.3-8.2) g/dL Albumin 3.7 (3.5-5.0) g/dL Globulin 2.5 (1.7-4.1) g/dL Albumin/Globulin Ratio 1.5 (1.0-2.8) Lipase 40 (23-300) U/L Procalcitonin (<0.5) ng/mL Imaging Data Chest x-ray: Radiologist's impression: [address] [address] XRay Report Signed Patient: Ryan Noe FMR#: [id number] : 7Acct:[id number] Age/Sex: 73 / MDate of Service: 10/03/18 Loc: ED Accession Number: [id number] Procedure: XR chest 1V Ordering Provider: Yenny Marquis MD PROCEDURE: XR CHEST 1V INDICATIONS: suspected sepsis TECHNIQUE: One view of the chest was acquired. COMPARISON: [facility], CHEST 1 VIEW, 07/09/2017, 23:37. FINDINGS: Surgical changes and devices: Left chest wall Port-A-Cath tip is in SVC. Lungs and pleura: Lungs are clear. No pleural effusions or pneumothorax. Mediastinum: Mediastinal contours appear normal. Heart size is normal. Bones and chest wall: No suspicious bony lesions. Overlying soft tissues appear unremarkable. IMPRESSION: No acute cardiopulmonary pathology. Dictated by: Ander Bartlett M.D. on 10/03/2018 at 10:31 Approved by: Ander Bartlett M.D. on 10/03/2018 at 10:33 ECG Data Attestation: I personally reviewed and interpreted this ECG as follows: (See below) Interpretation: Twelve lead EKG performed October 03, 2018, at 9:29 a.m.: Regular ventricular rhythm with a rate of 90 beats per minute MO interval 170 milliseconds QRS duration 86 millisecond QTC interval [address] T wave changes No ectopy Interpretation: Normal sinus rhythm, no signs of acute ischemia; normal EKG as interpreted by ED MD. Discharge Plan Departure Patient Disposition: Home Clinical Impression: Dehydration Discharge Date/Time: 10/03/18 15:07 Interventions: ED Discharge Assessment Last Done: 10/03/18 15:06 Instructions: Orthostatic Hypotension, DI for Dehydration -- Adult Activity Restrictions/Additional Instructions: Your labs look good, overall. Your case has been discussed with Dr. Valentin, who would like you to stop your lisinopril, due to your low blood pressure. You may call his office for a follow up appointment. Prescriptions: No Action digestive enzymes [Enzymatic Digestant] Tablet 1 tab PO TID PRN (Reason: digestion) RF: 0 atorvastatin 40 mg Tablet 40 mg PO DAILY RF: 0 ascorbic acid (vitamin C) [Vitamin C] 1,000 mg Tablet 1 g PO DAILY RF: 0 trazodone 50 mg Tablet 50 mg PO BEDTIME PRN (Reason: Sleep) RF: 0 amiodarone 200 mg Tablet 200 mg PO DAILY RF: 0 aspirin 81 mg Tablet,Delayed Release (Dr/Ec) 81 mg PO DAILY RF: 0 gabapentin 300 mg Capsule 300 mg PO BID RF: 0 hydrocortisone 2.5 % Cream 1 applic TOPICAL BID PRN (Reason: skin irritation or rash) RF: 0 metoprolol succinate 25 mg Tablet Extended Release 24 Hr 25 mg PO Q12H RF: 0 multivitamin Capsule 1 cap PO DAILY RF: 0 lisinopril 2.5 mg Tablet 1.25 mg PO DAILY RF: 0 oxycodone 5 mg Tablet 5 mg PO Q12H RF: 0 magnesium 200 mg Tablet 200 mg PO DAILY RF: 0 docosahexanoic acid-epa 120-180 mg Capsule 1 cap PO DAILY RF: 0 cholecalciferol (vitamin D3) [Vitamin D3] 5,000 unit Tablet 5,000 unit PO DAILY RF: 0 Intrinsi [id number] 500-20-800 mcg-mg-mcg Tablet 1 tab PO DAILY RF: 0 Eliquis 5 mg Tablet 5 mg PO BID RF: 0 potassium chloride 20 mEq Tablet Extended Release 10 meq PO DAILY RF: 0 glutamine powder 1 packet PO BID RF: 0 Referrals: Orsborn,Eliseo [Primary Care Provider] -
== END 2018-10-03 15:07 | disposition home or self-care (01) ==
PROVIDERS: Emergency Provider Emergency Medicine; PCP Internal Medicine
DX: E86.0 Dehydration (principal); C78.5 Secondary malignant neoplasm of large intestine and rectum; Z92.21 Personal history of antineoplastic chemotherapy
CPT/HCPCS: 36415; 36591; 71045; 80053; 82550; 83605; 83690; 84145; 84484; 85025; 85610; 85730; 87040; 93005; 96360; 96361; 99285; 99291

== ENCOUNTER 2018-12-12 16:43 | Emergency (ER) | payer OTHER, SELFPAY ==
[2018-12-12 16:53] VITALS: BP 99/53; PULSE 97; RESP 20; TEMP 36.4; O2SAT 98
--- NOTE | 2018-12-12 17:03 | DI.RAD.S_ITS ---
PROCEDURE: XR FOOT LT MIN 3V INDICATIONS: plantar foot pain TECHNIQUE: 3 views of the foot were acquired. COMPARISON: None. FINDINGS: Bones: No fractures or dislocations. No suspicious bony lesions. 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 There is also deformity of the navicular, chronic. Soft tissues: No tibiotalar joint effusion. Achilles tendon appears normal. IMPRESSION: No acute fracture. 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 Please correlate clinically. Dictated by: Reji Avalos M.D. on 12/12/2018 at 18:08 Approved by: Reji Avalos M.D. on 12/12/2018 at 18:10
--- NOTE | 2018-12-12 17:07 | DI.US.S_ITS ---
PROCEDURE: US PERIPH VENOUS LOW EXTREM LT INDICATIONS: LT ANKLE/FOOT PAIN/TENDERNESS, NK INJURY, HX OF DVT TECHNIQUE: Real-time imaging, as well as color and pulse Doppler interrogation, were performed of the lower extremity deep veins from the inguinal ligament to the popliteal fossa. COMPARISON: None. FINDINGS: The common femoral, femoral and popliteal veins are normally compressible, and free of intraluminal thrombus. Color and pulse Doppler demonstrate normal phasic intraluminal flow. There is normal augmentation response to distal compression maneuver. IMPRESSION: No evidence of DVT in visualized left lower extremity veins. Dictated by: Andre Bartlett M.D. on 12/12/2018 at 17:46 Approved by: Ander Bartlett M.D. on 12/12/2018 at 17:46
[2018-12-12 18:20] VITALS: PULSE 88
--- NOTE | 2018-12-12 18:23 | ED.EXTPRO ---
HPI - Extremity Problem General Chief complaint: Extremity Problem,Nontraumatic Stated complaint: LEFT FOOT PAIN Time Seen by Provider: 12/12/18 18:22 Source: patient Mode of arrival: ambulatory Limitations: no limitations History of Present Illness HPI Narrative: Patient is a 73-year-old male currently undergoing chemotherapy for metastatic colorectal cancer. He is here for evaluation of left foot pain. He states that his foot has hurt for many weeks now. He states that he has a very distant history of an injury to this left foot. He was told that he could potentially develop some arthritis but that was approximately 50 years ago. He reports today for pain in his left foot. No specific trauma that started the pain is just been worsening. Difficult for him to walk. Related Data Home Medications Medication Instructions Recorded Confirmed amiodarone 200 mg PO DAILY 10/03/18 10/03/18 apixaban [Eliquis] 5 mg PO BID 10/03/18 10/03/18 ascorbic acid (vitamin C) [Vitamin 1 g PO DAILY 10/03/18 10/03/18 C] aspirin 81 mg PO DAILY 10/03/18 10/03/18 atorvastatin 40 mg PO DAILY 10/03/18 10/03/18 cholecalciferol (vitamin D3) 5,000 unit PO DAILY 10/03/18 10/03/18 [Vitamin D3] digestive enzymes [Enzymatic 1 tab PO TID PRN 10/03/18 10/03/18 Digestant] docosahexanoic acid-epa 1 cap PO DAILY 10/03/18 10/03/18 gabapentin 300 mg PO BID 10/03/18 10/03/18 glutamine 1 packet PO BID 10/03/18 10/03/18 hydrocortisone 1 applic TOPICAL BID PRN 10/03/18 10/03/18 lisinopril 1.25 mg PO DAILY 10/03/18 10/03/18 magnesium 200 mg PO DAILY 10/03/18 10/03/18 metoprolol succinate 25 mg PO Q12H 10/03/18 10/03/18 multivitamin 1 cap PO DAILY 10/03/18 10/03/18 oxycodone 5 mg PO Q12H 10/03/18 10/03/18 potassium chloride 10 meq PO DAILY 10/03/18 10/03/18 trazodone 50 mg PO BEDTIME PRN 10/03/18 10/03/18 vit [id number] fact-FA cmb #2 1 tab PO DAILY 10/03/18 10/03/18 [Intrinsi [id number]] Allergies Allergy/AdvReac Type Severity Reaction Status Date / Time CHLOROPREP Allergy Unknown SKIN Uncoded 09/14/17 12:17 REACTION Review of Systems Constitutional Denies fever(s) Cardiovascular Denies chest pain and Denies dyspnea Respiratory Denies dyspnea Gastrointestinal Gastrointestinal: Denies abdominal pain Musculoskeletal Comments: Left foot pain Integumentary/Breasts Denies rash Hematologic/Lymphatic Denies easy bleeding and Denies easy bruising [facility] Medical History Metastatic colorectal cancer (Acute) No blood products (Acute) Social History Smoking Status: Former smoker Social History Smoking Status: Former smoker Exam Initial Vital Signs Initial Vital Signs: Vital Signs Temperature 97.6 F 12/12/18 16:53 Pulse Rate 97 H 12/12/18 16:53 Respiratory Rate 20 12/12/18 16:53 Blood Pressure 99/53 L 12/12/18 16:53 Pulse Oximetry 98 12/12/18 16:53 Const General: cooperative, well developed, well groomed and No acute distress Orientation: alert and awake [facility] Head: normal to inspection and normocephalic Cardio Pulses: dorsalis pedis present on the left Skin Lesions: no lesions Rashes: no rashes Neuro General: alert and awake Other: Sensation intact to light touch left lower extremity Extrem General: capillary refill normal Other: No gross deformities. Patient with no tenderness to palpation of his left lower leg. No tenderness palpation left ankle. Very difficult for the patient to pinpoint the tenderness on his left foot. Unable to elicit the pain that brought him in by palpation. Psych Appearance: grossly normal and well kempt Course Orders Ordered: ED Orders 12/12/18 17:03 XR foot LT min 3V Stat 12/12/18 17:07 US perip venous low extrem lt Stat Vital Signs - 8 hr 12/12/18 18:20 Pulse Rate [Left Dorsalis Pedis] 88 MDM - Extremity (Nontraumatic) Imaging Data X-ray foot: Radiologist's impression: [address] [id number] XRay Report Signed Patient: Ryan Noe R#: [id number] : [id number] Age/Sex: 73 / MDate of Service: 12/12/18 Loc: ED Accession Number: [id number] Procedure: XR foot LT min 3V Ordering Provider: Yenny Marquis MD PROCEDURE: XR FOOT LT MIN 3V INDICATIONS: plantar foot pain TECHNIQUE: 3 views of the foot were acquired. COMPARISON: None. FINDINGS: Bones: No fractures or dislocations. No suspicious bony lesions. 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 There is also deformity of the navicular, chronic. Soft tissues: No tibiotalar joint effusion. Achilles tendon appears normal. IMPRESSION: No acute fracture. 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 Please correlate clinically. Dictated by: Reji Avalos M.D. on 12/12/2018 at 18:08 Approved by: Reji Avalos M.D. on 12/12/2018 at 18:10 Venous US: Radiologist's impression: [address] [address] Ultrasound Report Signed Patient: Ryan Noe R#: [id number] : [id number] Age/Sex: 73 / MDate of Service: 12/12/18 Loc: ED Accession Number: [id number] Procedure: US periph venous low extrem lt Ordering Provider: Shruthi Powers P.A-C PROCEDURE: US PERIPH VENOUS LOW EXTREM LT INDICATIONS: LT ANKLE/FOOT PAIN/TENDERNESS, NK INJURY, HX OF DVT TECHNIQUE: Real-time imaging, as well as color and pulse Doppler interrogation, were performed of the lower extremity deep veins from the inguinal ligament to the popliteal fossa. COMPARISON: None. FINDINGS: The common femoral, femoral and popliteal veins are normally compressible, and free of intraluminal thrombus. Color and pulse Doppler demonstrate normal phasic intraluminal flow. There is normal augmentation response to distal compression maneuver. IMPRESSION: No evidence of DVT in visualized left lower extremity veins. Dictated by: Ander Bartlett M.D. on 12/12/2018 at 17:46 Approved by: Ander Bartlett M.D. on 12/12/2018 at 17:46 [facility] Narrative Medical decision making narrative: No fractures on the x-ray, no DVT on the ultrasound. Physical exam is not consistent with cellulitis. I do suspect that his symptoms are arthritis versus neuropathy or both. He is currently on gabapentin. He has pain medication at home. I discussed this with the patient. He has chemotherapy tomorrow or he is going to receive some steroids which may help his symptoms. He is going to try other modalities such as acupuncture which I told him was fine. Will hold on further workup for now. Patient given return precautions and follow-up instructions. He expressed understanding and agreement plan. Discharge Plan Departure Patient Disposition: Home Clinical Impression: Foot pain, left Discharge Date/Time: 12/12/18 19:00 Interventions: ED Discharge Assessment Last Done: 12/12/18 18:59 Instructions: How To Perform RICE (Rest, Ice, Compress, Elevate) Activity Restrictions/Additional Instructions: You can use crutches as needed. I do recommend you talk with your palliative care provider and also your oncologist about pain control. Return to the emergency department for any new or worsening symptoms. Prescriptions: No Action digestive enzymes [Enzymatic Digestant] Tablet 1 tab PO TID PRN (Reason: digestion) RF: 0 atorvastatin 40 mg Tablet 40 mg PO DAILY RF: 0 ascorbic acid (vitamin C) [Vitamin C] 1,000 mg Tablet 1 g PO DAILY RF: 0 trazodone 50 mg Tablet 50 mg PO BEDTIME PRN (Reason: Sleep) RF: 0 amiodarone 200 mg Tablet 200 mg PO DAILY RF: 0 aspirin 81 mg Tablet,Delayed Release (Dr/Ec) 81 mg PO DAILY RF: 0 gabapentin 300 mg Capsule 300 mg PO BID RF: 0 hydrocortisone 2.5 % Cream 1 applic TOPICAL BID PRN (Reason: skin irritation or rash) RF: 0 metoprolol succinate 25 mg Tablet Extended Release 24 Hr 25 mg PO Q12H RF: 0 multivitamin Capsule 1 cap PO DAILY RF: 0 lisinopril 2.5 mg Tablet 1.25 mg PO DAILY RF: 0 oxycodone 5 mg Tablet 5 mg PO Q12H RF: 0 magnesium 200 mg Tablet 200 mg PO DAILY RF: 0 docosahexanoic acid-epa 120-180 mg Capsule 1 cap PO DAILY RF: 0 cholecalciferol (vitamin D3) [Vitamin D3] 5,000 unit Tablet 5,000 unit PO DAILY RF: 0 Intrinsi [id number] 500-20-800 mcg-mg-mcg Tablet 1 tab PO DAILY RF: 0 Eliquis 5 mg Tablet 5 mg PO BID RF: 0 potassium chloride 20 mEq Tablet Extended Release 10 meq PO DAILY RF: 0 glutamine powder 1 packet PO BID RF: 0 Referrals: Eliseo Pritchard [Primary Care Provider] -
== END 2018-12-12 19:00 | disposition home or self-care (01) ==
PROVIDERS: Emergency Provider Emergency Medicine; PCP Internal Medicine
DX: M79.672 Pain in left foot (principal)
CPT/HCPCS: 73630; 93971; 99282; 99283

== ENCOUNTER → 2019-03-27 11:11 | Outpatient (CLI) | payer OTHER, SELFPAY ==
[2019-03-27 13:05] LABS: Appearance Urine UA SL CLOUDY; Bilirubin Urine UA NEGATIVE (NEGATIVE); Color Urine UA YELLOW; Glucose Urine UA NEGATIVE (Negative); Ketones Urine UA NEGATIVE (NEGATIVE); Leukocyte Esterase Urine UA 2+ (NEGATIVE); Nitrite Urine UA NEGATIVE (Negative); Occult Blood Urine UA 3+ (Negative); Protein Urine UA 1+ (Negative); Specific Gravity Urine UA <=1.005 (1.000-1.035); Urobilinogen Urine UA 0.2 E.U./dL (0.2)
[2019-03-27 13:56] LABS: RBC Urine 10-30/HPF (0-5/HPF); WBC Urine >100/HPF (0-5/HPF)
[2019-03-27 13:57] LABS: Bacteria Urine Few (2-10); Culture Indicated Urine Specimen Cultured
== END ==
PROVIDERS: PCP Internal Medicine; Visit Provider Urology
DX: R30.0 Dysuria (principal)
CPT/HCPCS: 81001; 87077; 87086; 87186

== ENCOUNTER → 2020-05-13 14:40 | Outpatient (ROUT) | payer OTHER, SELFPAY ==
[2020-05-13 14:42] LABS: Bacteria Urine None Seen; WBC Urine None Seen (0-5/HPF)
[2020-05-13 15:02] LABS: Appearance Urine UA SL CLOUDY; Bilirubin Urine UA NEGATIVE (NEGATIVE); Color Urine UA YELLOW; Glucose Urine UA NEGATIVE (Negative); Ketones Urine UA NEGATIVE (NEGATIVE); Leukocyte Esterase Urine UA TRACE (NEGATIVE); Nitrite Urine UA NEGATIVE (Negative); Occult Blood Urine UA 3+ (Negative); Protein Urine UA 2+ (Negative); Urobilinogen Urine UA 0.2 E.U./dL (0.2); pH Urine UA 6.5 (4.5-8.0)
[2020-05-13 15:09] LABS: RBC Urine >100/HPF (0-5/HPF)
[2020-05-13 15:10] LABS: Culture Indicated Urine Cult Not Indicated
== END ==
PROVIDERS: PCP Internal Medicine; Visit Provider Family Medicine
DX: R82.90 Unspecified abnormal findings in urine (principal)
CPT/HCPCS: 81001; 87086